=== PATIENT | female | born 1980 | race Two or more races ===

== ENCOUNTER 2020-02-20 09:50 | Observation (INO) | payer OTHER ==
[~2020-02-20] VITALS: Ht 159 cm; Wt 96.2 kg
[2020-02-20] MEDS ORDERED: INSNPH SQ (10:01)
[2020-02-20] MEDS ORDERED: METF-960 PO (10:01)
[2020-02-20] MEDS ORDERED: PREN-217 PO (10:01)
[2020-02-20 10:14] VITALS: BP 123/66
[2020-02-20 11:13] LABS: GLUCOMETER DEV NAME(LOC) 4S.; GLUCOSE,POINT OF CARE 79 MG/DL (70-110)
== END 2020-02-20 12:30 | disposition home or self-care (01) ==
LOC: 4S 09:50
PROVIDERS: ADMIT Obstetrics & Gynecology; ATTEND Obstetrics & Gynecology
DX: O24.419 Gestational diabetes mellitus in pregnancy, unspecified control (principal); O09.523 Supervision of elderly multigravida, third trimester; Z3A.37 37 weeks gestation of pregnancy
CPT/HCPCS: 59025; 83036; 99219

== ENCOUNTER 2020-02-20 12:44 | Inpatient (IN) | payer OTHER ==
[~2020-02-20] VITALS: Ht 160 cm; Wt 97.5 kg
[~2020-02-20 12:44] MED LIST: INSNPH SQ; METF-960 PO; PREN-217 PO
[2020-02-27 12:13] VITALS: BP 117/72
[2020-02-27] MEDS ORDERED: METOCLOPRAMIDE HCL 5 MG/ML 2 ML VIAL IVP PRN (13:30)
[2020-02-27] MEDS ORDERED: METHYLERGONOVINE MALEATE 0.2 MG/ML VIAL IM PRN (13:30)
[2020-02-27] MEDS ORDERED: CITRIC ACID/SODIUM CITRATE 30 ML SOLUTION UDCUP PO PRN (13:30)
[2020-02-27] MEDS ORDERED: RINGERS SOLUTION,LACTATED 1,000 ML IV PRN (13:30)
[2020-02-27] MEDS ORDERED: OXYTOCIN 30 UNITS/LACT RINGERS 500 ML IV ONE (13:30)
[2020-02-27] MEDS ORDERED: LIDOCAINE/PF 1% 30 ML VIAL SQ PRN (13:30)
[2020-02-27] MEDS ORDERED: OXYTOCIN 30 UNITS/LACT RINGERS 500 ML IV PRN (13:30)
[2020-02-27] MEDS ORDERED: FentaNYL CITRATE PF 100 MCG/2 ML VIAL IVP PRN ×2 (13:45→22:30)
[2020-02-27 14:02] LABS: COVID AG,FIA SOURCE NASOPHARYNGEAL
[2020-02-27] MEDS: RINGERS SOLUTION,LACTATED 1,000 ML IV SCH ×3 (15:17→21:22)
[2020-02-27 15:57] LABS: BASOPHILS % (AUTO) 0.3 % (0.0-2.0); EOSINOPHILS % (AUTO) 1.1 % (1.0-6.0); HEMATOCRIT 35.6 % (36-46); HEMOGLOBIN 11.9 g/dL (12.0-16.0); LYMPHOCYTES # (AUTO) 1.5 K/uL (1.0-4.8); MEAN CORPUSCULAR HEMOGLOBIN 30.5 pg (26.0-34.0); MEAN CORPUSCULAR HGB CONC 33.5 G/dL (31.0-37.0); MEAN CORPUSCULAR VOLUME 91 fL (80-100); MONOCYTES # (AUTO) 0.7 K/uL (0.1-1.0); MONOCYTES % (AUTO) 6.8 % (2.0-9.0); NEUTROPHILS # (AUTO) 7.3 K/uL (1.8-7.7); NEUTROPHILS % (AUTO) 75.8 % (40.0-70.0); PLATELET COUNT (AUTO)-OB 232 K/uL (150-450); RED BLOOD CELL COUNT(AUTO) 3.92 MIL/uL (4.00-5.20); RED CELL DISTRIBUTION WIDTH 12.8 % (11.5-14.5)
[2020-02-27] MEDS ORDERED: DINOPROSTONE 10 MG VAGINAL SUPPOSITORY VG ONE (16:00)
[2020-02-27 18:13] LABS: GLUCOMETER DEV NAME(LOC) 4S.; GLUCOSE,POINT OF CARE 68 MG/DL (70-110)
[2020-02-27] MEDS ORDERED: OXYGEN THERAPY IH SCH (20:00)
[2020-02-27] MEDS ORDERED: MIDAZOLAM HCL 2 MG/2 ML VIAL ONE (21:27)
[2020-02-27] MEDS ORDERED: FentaNYL CITRATE PF 100 MCG/2 ML VIAL ONE (21:27)
[2020-02-27] MEDS ORDERED: MORPHINE SULFATE/PF 1 MG/ML 10 ML AMP ONE (21:27)
[2020-02-27] MEDS ORDERED: ONDANSETRON HCL 4 MG/2 ML VIAL ONE (21:28)
[2020-02-27] MEDS ORDERED: KETOROLAC TROMETHAMINE 30 MG/ML VIAL ONE (21:28)
[2020-02-27] MEDS ORDERED: DEXAMETHASONE SOD PHOS 4 MG/ML VIAL ONE (21:28)
[2020-02-27] MEDS ORDERED: BUPIVACAINE HCL/DEX-WATER/PF 0.75% 2 ML AMP ITH ONE (21:28)
[2020-02-27] MEDS ORDERED: GUM MASTIC/STORAX/MSAL/ALCOHOL LIQUID 0.67 ML VIAL TP ONE (21:58)
[2020-02-27] MEDS ORDERED: NALOXONE HCL 0.4 MG/ML VIAL IVP PRN (22:30)
[2020-02-27] MEDS ORDERED: ACETAMINOPHEN 1000 MG/ISO-OSM 100 ML IV ONE ×2 (22:30→23:31)
[2020-02-27] MEDS ORDERED: OxyCODONE HCL/ACETAMINOPHEN 5-325 MG TABLET PO PRN (22:30)
[2020-02-27] MEDS ORDERED: ONDANSETRON HCL 4 MG/2 ML VIAL IVP PRN (22:30)
[2020-02-27] MEDS ORDERED: DiphenhydrAMINE HCL 50 MG/ML VIAL IVP PRN (22:30)
[2020-02-28] MEDS ORDERED: KETOROLAC TROMETHAMINE 30 MG/ML VIAL IVP SCH
[2020-02-28] MEDS ORDERED: LANOLIN 7 GM OINTMENT TP PRN
[2020-02-28] MEDS ORDERED: MEASLES/MUMPS/RUBELLA VACCINE, LIVE 0.5 ML/VIAL SQ ONE
[2020-02-28] MEDS ORDERED: OXYTOCIN 20 UNITS/LACT RINGERS 1,000 ML IV ONE (03:00)
[2020-02-28 03:18] LABS: GLUCOMETER DEV NAME(LOC) 4S.; GLUCOSE,POINT OF CARE 127 MG/DL (70-110)
[2020-02-28] MEDS: KETOROLAC TROMETHAMINE 30 MG/ML VIAL IVP SCH ×3 (05:55→17:36)
[2020-02-28] MEDS ORDERED: RINGERS SOLUTION,LACTATED 1,000 ML IV SCH ×2 (07:00)
[2020-02-28 07:20] LABS: BASOPHILS % (AUTO) 0.1 % (0.0-2.0); EOSINOPHILS % (AUTO) 0 % (1.0-6.0); HEMATOCRIT 34.7 % (36-46); HEMOGLOBIN 11.5 g/dL (12.0-16.0); LYMPHOCYTES # (AUTO) 0.7 K/uL (1.0-4.8); LYMPHOCYTES % (AUTO) 4.4 % (22.0-44.0); MEAN CORPUSCULAR HEMOGLOBIN 30.1 pg (26.0-34.0); MEAN CORPUSCULAR VOLUME 91 fL (80-100); MONOCYTES # (AUTO) 0.3 K/uL (0.1-1.0); MONOCYTES % (AUTO) 2.2 % (2.0-9.0); PLATELET COUNT (AUTO)-OB 221 K/uL (150-450); RED CELL DISTRIBUTION WIDTH 12.7 % (11.5-14.5)
[2020-02-28 07:26] LABS: NEUTROPHILS % (AUTO) 93.3 % (40.0-70.0)
[2020-02-28] MEDS ORDERED: OXYGEN THERAPY IH SCH ×2 (08:00)
[2020-02-28] MEDS ORDERED: ACETAMINOPHEN/CODEINE 300-30 MG TABLET PO PRN ×2 (22:30)
[2020-02-28] MEDS: IBUPROFEN 800 MG TABLET PO PRN (23:30)
[2020-02-28] MEDS: MAGNESIUM HYDROXIDE SUSPENSION 30 ML UDCUP PO PRN (23:30)
[2020-02-29] MEDS: KETOROLAC TROMETHAMINE 30 MG/ML VIAL IVP SCH ×2 (06:00)
[2020-02-29] MEDS: IBUPROFEN 800 MG TABLET PO PRN ×2 (06:09→17:28)
[2020-02-29] MEDS ORDERED: EPHEDrine SULFATE 50 MG/ML VIAL IM ONE (06:41)
[2020-02-29] MEDS ORDERED: OXYTOCIN 10 UNITS/ML VIAL IM ONE (06:41)
[2020-02-29] MEDS ORDERED: 0.9% SODIUM CHLORIDE 10 ML VIAL IVP ONE (06:41)
[2020-02-29] MEDS: MAGNESIUM HYDROXIDE SUSPENSION 30 ML UDCUP PO PRN ×2 (07:57→21:01)
[2020-03-01] MEDS: IBUPROFEN 800 MG TABLET PO PRN (08:01)
[2020-03-01] MEDS: MAGNESIUM HYDROXIDE SUSPENSION 30 ML UDCUP PO PRN (09:44)
[2020-03-01] MEDS ORDERED: IBUP-2071 PO (10:47)
== END 2020-03-01 12:30 | disposition home or self-care (01) | DRG 788 ==
LOC: OBSVTOIN 02-27 10:55 → 4S 02-27 10:55
PROVIDERS: ADMIT Obstetrics & Gynecology Obstetrics; ATTEND Obstetrics & Gynecology Obstetrics
PROC: 10D00Z1 Extraction of Products of Conception, Low, Open Approach (ICD-10-PCS; principal; 2020-02-27)
PROC: 3E0234Z Introduction of Serum, Toxoid and Vaccine into Muscle, Percutaneous Approach (ICD-10-PCS; 2020-02-28)
DX: O76 Abnormality in fetal heart rate and rhythm complicating labor and delivery (principal); O24.424 Gestational diabetes mellitus in childbirth, insulin controlled; Z20.822 Contact with and (suspected) exposure to COVID-19; Z3A.38 38 weeks gestation of pregnancy; Z37.0 Single live birth; Z23 Encounter for immunization
CPT/HCPCS: 76811; 86850; 86900; 86901; 87426; A9575; J0131; J1100; J1885; J2250; J2405; J2590; J2765; J3010; J3490; J7120